=== PATIENT | female | born 1950 | race Two or more races ===

== ENCOUNTER 2024-03-26 15:50 | Inpatient (IN) | payer MEDICARE, MEDICAID ==
[~2024-03-26] VITALS: Ht 160 cm; Wt 51.8 kg
[2024-03-26 17:05] LABS: BASOPHILS % (AUTO) 0.4 % (0.0-2.0); HEMATOCRIT 35.5 % (36-46); HEMOGLOBIN 11.7 g/dL (12.0-16.0); LYMPHOCYTES # (AUTO) 1.3 K/uL (1.0-4.8); LYMPHOCYTES % (AUTO) 14.5 % (22.0-44.0); MEAN CORPUSCULAR HEMOGLOBIN 31.1 pg (26.0-34.0); MEAN CORPUSCULAR VOLUME 94 fL (80-100); MONOCYTES # (AUTO) 0.6 K/uL (0.1-1.0); MONOCYTES % (AUTO) 6.3 % (2.0-9.0); NEUTROPHILS # (AUTO) 7.1 K/uL (1.8-7.7); NEUTROPHILS % (AUTO) 77.8 % (40.0-70.0); PLATELET COUNT (AUTO) 158 K/uL (150-450); RED BLOOD CELL COUNT(AUTO) 3.77 MIL/uL (4.00-5.20); RED CELL DISTRIBUTION WIDTH 16.3 % (11.5-14.5); WHITE BLOOD COUNT (AUTO) 9.1 K/uL (4.5-11.0)
[2024-03-26 17:17] LABS: ANION GAP 7 mmol/L (8-16); CALCIUM, TOTAL 9.6 mg/dL (8.8-10.5); CARBON DIOXIDE 28 mmol/L (22-29); CHLORIDE 110 mmol/L (98-107); CREATININE 1.31 mg/dL (0.60-1.30); GLOMERULAR FILTR. RATE CALC 40 mL/min (>60); GLUCOSE,RANDOM 92 mg/dL (70-110); SODIUM SERUM 145 mmol/L (136-145); UREA NITROGEN, BLOOD 19 mg/dL (7-18)
[2024-03-26 18:03] LABS: ALCOHOL, BLOOD (SERUM) < 3 mg/dL (0-10)
[2024-03-26 19:21] LABS: COVID AG,FIA SOURCE NASAL SWAB
[2024-03-26 19:40] LABS: SARS-COV2 (COVID) ANTIGEN,FIA Negative (Negative)
[2024-03-26] MEDS ORDERED: AMMO140C4 TP (20:24)
[2024-03-26] MEDS ORDERED: CALC-916 PO (20:25)
[2024-03-26] MEDS ORDERED: ESCI5SOL2 PO (20:26)
[2024-03-26] MEDS ORDERED: FAMO10TA39 PO (20:27)
[2024-03-26] MEDS ORDERED: MEMA10TA24 PO (20:28)
[2024-03-26] MEDS ORDERED: LOSA-382 PO (20:28)
[2024-03-26] MEDS ORDERED: RISP1SOL11 PO (20:30)
[2024-03-26] MEDS ORDERED: TRAZ-186 PO (20:30)
[2024-03-26] MEDS ORDERED: LORA2I PO (20:33)
[2024-03-26] MEDS ORDERED: MEMA28CA16 PO (20:42)
[2024-03-26] MEDS ORDERED: RISP-31 PO (20:42)
[2024-03-26] MEDS ORDERED: LORA0.5T20 PO (20:42)
[2024-03-26] MEDS ORDERED: FAMO20 PO (20:42)
[2024-03-26] MEDS ORDERED: ESCI20TA87 PO (20:42)
[2024-03-27] MEDS ORDERED: ZOLPIDEM TARTRATE 10 MG TABLET PO PRN (12:15)
[2024-03-27] MEDS: LORazepam 1 MG TABLET PO PRN (12:29)
[2024-03-27] MEDS: HALOPERIDOL 5 MG TABLET PO PRN (12:29)
[2024-03-27 13:59] LABS: APPEARANCE,URINE TURBID (CLEAR); BILIRUBIN,URINE NEGATIVE (NEGATIVE); COLOR,URINE YELLOW (YELLOW); GLUCOSE, URINE (UA) NEGATIVE (NEGATIVE); KETONES,URINE NEGATIVE (NEGATIVE); LEUKOCYTE ESTERASE ,URINE LARGE (NEGATIVE); NITRATE,URINE POSITIVE (NEGATIVE); OCCULT BLOOD,URINE NEGATIVE (NEGATIVE); PH,URINE 5.5 (5.0-8.0); PH,URINE DRUG SCREEN 5.5 (5.0-8.0); PROTEIN,URINE 30-70 mg/dL (NEGATIVE); SPECIFIC GRAVITIY, URINE 1.022 (1.003-1.030); UROBILINOGEN,URINE <=1.0 mg/dL (<=1.0)
[2024-03-27 14:15] LABS: ALCOHOL, URINE DRUG SCREEN NEGATIVE (NEGATIVE); AMPHET/METH SCREEN,URINE NEGATIVE (NEGATIVE); BARBITURATE SCREEN, URINE NEGATIVE (NEGATIVE); BENZODIAZEPINES SCREEN,URINE NEGATIVE (NEGATIVE); CANNABINOID SCREEN,URINE NEGATIVE (NEGATIVE); COCAINE SCREEN,URINE NEGATIVE (NEGATIVE); METHADONE SCREEN, URINE NEGATIVE (NEGATIVE); OPIATE SCREEN,URINE NEGATIVE (NEGATIVE); PHENCYCLIDINE SCREEN,URINE NEGATIVE (NEGATIVE)
[2024-03-27 14:17] LABS: SQUAMOUS EPITHELIAL CELL,UR Many /LPF (None Seen)
[2024-03-27 14:18] LABS: BACTERIA,URINE Many /HPF (None Seen); RBC,URINE 0-2 /HPF (0-2); WBC,URINE 26-50 /HPF (0-5)
[2024-03-27 22:30] VITALS: BP 130/74; PULSE 72; RESP 18; TEMP 97.9; O2SAT 97
[2024-03-28] MEDS ORDERED: ONDANSETRON 4 MG TABLET PO PRN (07:00)
[2024-03-28] MEDS ORDERED: ACETAMINOPHEN 325 MG TABLET PO PRN (07:00)
[2024-03-28] MEDS ORDERED: CloNIDine HCL 0.1 MG TABLET PO PRN (07:00)
[2024-03-28] MEDS ORDERED: GuaiFENesin/D-METHORPHAN [SUGAR-FREE] 200-20MG/10 ML SYRUP UDCUP PO PRN (07:00)
[2024-03-28] MEDS ORDERED: DOCUSATE SODIUM 100 MG CAPSULE PO PRN (07:00)
[2024-03-28] MEDS ORDERED: LOPERAMIDE HCL 2 MG CAPSULE PO PRN (07:00)
[2024-03-28] MEDS ORDERED: NICOTINE 14 MG/24 HOUR PATCH TD PRN (07:00)
[2024-03-28] MEDS ORDERED: MAG HYDROX/ALUMINUM HYD/SIMETH ES 30 ML SUSPENSION UDCUP PO PRN (07:00)
[2024-03-28] MEDS ORDERED: MAGNESIUM HYDROXIDE SUSPENSION 30 ML UDCUP PO PRN (07:00)
[2024-03-28] MEDS ORDERED: PETROLATUM,WHITE 28 GM JELLY TP PRN (07:00)
[2024-03-28] MEDS ORDERED: ALBUTEROL SULFATE HFA 90 MCG/PUFF 8 GM INHALER IH PRN (07:00)
[2024-03-28] MEDS: FLUTICASONE PROPIONATE 50 MCG/SPRAY 16 GM NASAL SPRAY NASAL SCH (09:00)
[2024-03-28] MEDS ORDERED: CYANOCOBALAMIN 500 MCG TABLET PO SCH (09:00)
[2024-03-28 10:51] VITALS: BP 142/68; PULSE 68; RESP 20; TEMP 98.9; O2SAT 98
[2024-03-28] MEDS: CHOLECALCIFEROL (VIT D3) 1,000 UNITS [25 MCG] TABLET PO SCH (10:56)
[2024-03-28] MEDS: LOSARTAN POTASSIUM 50 MG TABLET PO SCH (10:56)
[2024-03-28] MEDS: CALCIUM CARBONATE 648 MG TABLET PO SCH (10:56)
[2024-03-28] MEDS: LACTOBAC ACID/BULG/BIFID/THERM TABLET PO SCH (10:56)
[2024-03-28] MEDS: CYANOCOBALAMIN 500 MCG TABLET PO SCH (10:57)
[2024-03-28] MEDS: MEMANTINE HCL 10 MG TABLET PO SCH (10:57)
[2024-03-28] MEDS: FAMOTIDINE 20 MG TABLET PO SCH (10:57)
[2024-03-28] MEDS: AMMONIUM LACTATE 12% 225 GM LOTION TP SCH (10:58)
[2024-03-28] MEDS ORDERED: MEMANTINE HCL 10 MG TABLET PO SCH (11:30)
[2024-03-28] MEDS: ESCITALOPRAM OXALATE 20 MG TABLET PO SCH (12:54)
[2024-03-28 12:56] VITALS: BP 138/72; PULSE 77; RESP 18; O2SAT 99
[2024-03-28] MEDS: RisperiDONE 1 MG TABLET PO SCH (17:13)
[2024-03-28] MEDS: CEPHALEXIN MONOHYDRATE 500 MG CAPSULE PO SCH (17:58)
[2024-03-28 20:36] VITALS: BP 136/77; PULSE 74; RESP 18; TEMP 97.1; O2SAT 98
[2024-03-29] MEDS: MEMANTINE HCL 10 MG TABLET PO SCH (09:34)
[2024-03-29 10:07] VITALS: BP 117/55; PULSE 74; RESP 17; TEMP 98.1; O2SAT 99
[2024-03-29 21:28] VITALS: RESP 18
[2024-03-30 09:28] VITALS: BP 130/79; PULSE 73; RESP 17; TEMP 97.4; O2SAT 96
[2024-03-30 23:11] VITALS: RESP 18
[2024-03-31 09:59] VITALS: BP 124/78; PULSE 73; RESP 17; TEMP 96.9; O2SAT 98
[2024-03-31] MEDS: IBUPROFEN 400 MG TABLET PO PRN (10:02)
[2024-03-31 22:51] VITALS: RESP 18
[2024-04-01 08:30] VITALS: BP 129/75; PULSE 76; RESP 18; TEMP 98; O2SAT 95
[2024-04-01 22:36] VITALS: BP 120/65; PULSE 80; RESP 18; TEMP 97.5; O2SAT 96
[2024-04-02 10:22] VITALS: BP 114/69; PULSE 80; RESP 18; TEMP 97.7; O2SAT 98
[2024-04-02 21:41] VITALS: BP 96/60; PULSE 68; RESP 16; TEMP 97.8; O2SAT 97
[2024-04-03 08:33] VITALS: BP 109/75; PULSE 77; RESP 17; TEMP 97.8; O2SAT 98
[2024-04-03] MEDS ORDERED: CHOL25TA4 PO (14:28)
[2024-04-03] MEDS ORDERED: CYAN500T56 PO (14:28)
[2024-04-03] MEDS ORDERED: ACID1TAB13 PO (14:29)
[2024-04-03] MEDS ORDERED: FLUT16SP NASAL (14:29)
== END 2024-04-03 18:04 | DRG 885 ==
LOC: EMS 15:50 → 3EX 03-27 23:07 → 3EI 03-28 17:45
PROVIDERS: ADMIT Psychiatry & Neurology Child & Adolescent Psychiatry; ATTEND Psychiatry & Neurology Child & Adolescent Psychiatry
PROC: GZHZZZZ Group Psychotherapy (ICD-10-PCS; principal; 2024-03-28)
PROC: GZ52ZZZ Individual Psychotherapy, Cognitive (ICD-10-PCS; 2024-03-28)
PROC: GZ56ZZZ Individual Psychotherapy, Supportive (ICD-10-PCS; 2024-03-28)
DX: F25.0 Schizoaffective disorder, bipolar type (principal); F03.911 Unspecified dementia, unspecified severity, with agitation; F03.92 Unspecified dementia, unspecified severity, with psychotic disturbance; Z20.822 Contact with and (suspected) exposure to COVID-19; I10 Essential (primary) hypertension; E55.9 Vitamin D deficiency, unspecified; Z88.5 Allergy status to narcotic agent
CPT/HCPCS: 80048; 80307; 81001; 85025; 87077; 87081; 87086; 87186; 99285; G0378; G0480

== ENCOUNTER 2024-05-15 16:43 | Inpatient (IN) | payer MEDICARE, MEDICAID ==
[~2024-05-15] VITALS: Ht 160 cm; Wt 56.8 kg
[~2024-05-15 16:43] MED LIST: ACID1TAB13 PO; AMMO140C4 TP; CALC-916 PO; CHOL25TA4 PO; CYAN500T56 PO; ESCI20TA87 PO; FAMO20 PO; FLUT16SP NASAL; LOSA-382 PO; MEMA10TA24 PO; RISP-31 PO
[2024-05-15 18:15] LABS: BASOPHILS % (AUTO) 0.4 % (0.0-2.0); EOSINOPHILS % (AUTO) 0.6 % (1.0-6.0); HEMATOCRIT 47.5 % (36-46); HEMOGLOBIN 15.6 g/dL (12.0-16.0); LYMPHOCYTES # (AUTO) 1.7 K/uL (1.0-4.8); LYMPHOCYTES % (AUTO) 9.9 % (22.0-44.0); MEAN CORPUSCULAR HEMOGLOBIN 31.8 pg (26.0-34.0); MEAN CORPUSCULAR HGB CONC 32.8 G/dL (31.0-37.0); MEAN CORPUSCULAR VOLUME 97 fL (80-100); MONOCYTES # (AUTO) 0.8 K/uL (0.1-1.0); MONOCYTES % (AUTO) 4.7 % (2.0-9.0); NEUTROPHILS # (AUTO) 14.8 K/uL (1.8-7.7); NEUTROPHILS % (AUTO) 84.4 % (40.0-70.0); PLATELET COUNT (AUTO) 148 K/uL (150-450); RED BLOOD CELL COUNT(AUTO) 4.89 MIL/uL (4.00-5.20); RED CELL DISTRIBUTION WIDTH 14.8 % (11.5-14.5); WHITE BLOOD COUNT (AUTO) 17.5 K/uL (4.5-11.0)
[2024-05-15 18:17] LABS: ANION GAP 10 mmol/L (8-16); CALCIUM, TOTAL 11.2 mg/dL (8.8-10.5); CARBON DIOXIDE 28 mmol/L (22-29); CHLORIDE 113 mmol/L (98-107); CREATININE 1.11 mg/dL (0.60-1.30); GLOMERULAR FILTR. RATE CALC 48 mL/min (>60); GLUCOSE,RANDOM 119 mg/dL (70-110); POTASSIUM 3.7 mmol/L (3.5-5.1); SODIUM SERUM 151 mmol/L (136-145); UREA NITROGEN, BLOOD 37 mg/dL (7-18)
[2024-05-15 18:25] LABS: ALCOHOL, BLOOD (SERUM) < 3 mg/dL (0-10)
[2024-05-15 20:23] LABS: COVID AG,FIA SOURCE NASAL SWAB
[2024-05-15 20:27] LABS: APPEARANCE,URINE CLEAR (CLEAR); BILIRUBIN,URINE NEGATIVE (NEGATIVE); COLOR,URINE YELLOW (YELLOW); GLUCOSE, URINE (UA) NEGATIVE (NEGATIVE); KETONES,URINE NEGATIVE (NEGATIVE); LEUKOCYTE ESTERASE ,URINE NEGATIVE (NEGATIVE); NITRATE,URINE NEGATIVE (NEGATIVE); OCCULT BLOOD,URINE NEGATIVE (NEGATIVE); PH,URINE 5.5 (5.0-8.0); PH,URINE DRUG SCREEN 5.5 (5.0-8.0); PROTEIN,URINE TRACE mg/dL (NEGATIVE)
[2024-05-15 20:33] LABS: AMPHET/METH SCREEN,URINE NEGATIVE (NEGATIVE); BARBITURATE SCREEN, URINE NEGATIVE (NEGATIVE); BENZODIAZEPINES SCREEN,URINE NEGATIVE (NEGATIVE); CANNABINOID SCREEN,URINE NEGATIVE (NEGATIVE); COCAINE SCREEN,URINE NEGATIVE (NEGATIVE); METHADONE SCREEN, URINE NEGATIVE (NEGATIVE); OPIATE SCREEN,URINE NEGATIVE (NEGATIVE); PHENCYCLIDINE SCREEN,URINE NEGATIVE (NEGATIVE)
[2024-05-15 20:37] LABS: ALCOHOL, URINE DRUG SCREEN NEGATIVE (NEGATIVE)
[2024-05-15 20:42] LABS: SARS-COV2 (COVID) ANTIGEN,FIA Negative (Negative)
[2024-05-15] MEDS ORDERED: 0.9% SODIUM CHLORIDE 10 ML SYRINGE IVP PRN (20:45)
[2024-05-15] MEDS ORDERED: ONDANSETRON HCL 4 MG/2 ML VIAL IVP PRN (20:45)
[2024-05-15] MEDS: DOCUSATE SODIUM 100 MG CAPSULE PO SCH (20:49)
[2024-05-15] MEDS ORDERED: SODIUM CHLORIDE 0.9% 100 ML ONE (21:04)
[2024-05-15] MEDS ORDERED: IOHEXOL 350 MG/ML 100 ML VIAL ONE (21:04)
[2024-05-15] MEDS ORDERED: 0.9% SODIUM CHLORIDE 10 ML SYRINGE IVP ONE (21:04)
[2024-05-15] MEDS: SODIUM CHLORIDE 0.9% 1,700 ML IV ONE (21:06)
[2024-05-15 21:41] LABS: ANION GAP 9 mmol/L (8-16); CALCIUM, TOTAL 10.6 mg/dL (8.8-10.5); CARBON DIOXIDE 26 mmol/L (22-29); CHLORIDE 117 mmol/L (98-107); CREATININE 0.83 mg/dL (0.60-1.30); GLOMERULAR FILTR. RATE CALC > 60 mL/min (>60); GLUCOSE,RANDOM 130 mg/dL (70-110); POTASSIUM 3.4 mmol/L (3.5-5.1); SODIUM SERUM 152 mmol/L (136-145); UREA NITROGEN, BLOOD 37 mg/dL (7-18)
[2024-05-15 21:45] LABS: ALANINE AMINOTRANSFERASE 29 U/L (12-78); ALBUMIN 2.6 g/dL (3.4-5.0); ALKALINE PHOSPHATASE 87 U/L (46-116); ASPARTATE AMINOTRANSFERASE 16 U/L (15-37); BILIRUBIN,TOTAL 0.9 mg/dL (0.1-1.0); LACTATE DEHYDROGENASE 210 U/L (81-234); TOTAL PROTEIN, SERUM 6.2 g/dL (6.4-8.2)
[2024-05-15 21:48] LABS: LACTIC ACID 1.3 mmol/L (0.4-2.0)
[2024-05-15 23:08] VITALS: BP 106/77; PULSE 72; RESP 18; TEMP 94.9; O2SAT 99
[2024-05-15] MEDS: HEPARIN SODIUM,PORCINE 5,000 UNITS/ML VIAL SQ SCH (23:35)
[2024-05-15] MEDS: DEXTROSE 5%-WATER 1,000 ML IV SCH (23:36)
[2024-05-15] MEDS: POTASSIUM CHLORIDE 20 MEQ ER TABLET PO ONE (23:37)
[2024-05-16] MEDS: CefTRIAXone 1 GM/DEXTROSE 50 ML IV SCH (00:31)
[2024-05-16] MEDS ORDERED: SODIUM CHLORIDE 0.9% 500 ML IV ONE (00:34)
[2024-05-16 04:53] LABS: BASOPHILS % (AUTO) 0.2 % (0.0-2.0); EOSINOPHILS % (AUTO) 0.4 % (1.0-6.0); HEMATOCRIT 38.1 % (36-46); HEMOGLOBIN 12.6 g/dL (12.0-16.0); LYMPHOCYTES # (AUTO) 1.1 K/uL (1.0-4.8); LYMPHOCYTES % (AUTO) 7.7 % (22.0-44.0); MEAN CORPUSCULAR HEMOGLOBIN 31.7 pg (26.0-34.0); MEAN CORPUSCULAR HGB CONC 33.1 G/dL (31.0-37.0); MEAN CORPUSCULAR VOLUME 96 fL (80-100); MONOCYTES # (AUTO) 0.7 K/uL (0.1-1.0); MONOCYTES % (AUTO) 5.2 % (2.0-9.0); NEUTROPHILS # (AUTO) 12.4 K/uL (1.8-7.7); PLATELET COUNT (AUTO) 122 K/uL (150-450); RED BLOOD CELL COUNT(AUTO) 3.98 MIL/uL (4.00-5.20); RED CELL DISTRIBUTION WIDTH 14.6 % (11.5-14.5); WHITE BLOOD COUNT (AUTO) 14.3 K/uL (4.5-11.0)
[2024-05-16 04:58] LABS: NEUTROPHILS % (AUTO) 86.5 % (40.0-70.0)
[2024-05-16 07:25] VITALS: BP 118/62; PULSE 86; RESP 20; TEMP 96.5; O2SAT 98
[2024-05-16 15:07] VITALS: BP 110/79; PULSE 78; RESP 20; TEMP 97; O2SAT 98
[2024-05-16 21:23] VITALS: BP 107/73; PULSE 71; RESP 20; TEMP 97.7; O2SAT 96
[2024-05-17 04:09] VITALS: BP 107/53; PULSE 69; RESP 19; TEMP 99; O2SAT 99
[2024-05-17 07:53] VITALS: BP 117/77; PULSE 72; RESP 18; TEMP 99.1; O2SAT 100
[2024-05-17 08:11] LABS: BASOPHILS % (AUTO) 0.4 % (0.0-2.0); EOSINOPHILS % (AUTO) 2.6 % (1.0-6.0); HEMATOCRIT 36.2 % (36-46); LYMPHOCYTES # (AUTO) 1.7 K/uL (1.0-4.8); LYMPHOCYTES % (AUTO) 16.9 % (22.0-44.0); MEAN CORPUSCULAR HGB CONC 33.1 G/dL (31.0-37.0); MEAN CORPUSCULAR VOLUME 97 fL (80-100); MONOCYTES # (AUTO) 0.5 K/uL (0.1-1.0); MONOCYTES % (AUTO) 5.5 % (2.0-9.0); NEUTROPHILS # (AUTO) 7.4 K/uL (1.8-7.7); NEUTROPHILS % (AUTO) 74.6 % (40.0-70.0); PLATELET COUNT (AUTO) 108 K/uL (150-450); RED BLOOD CELL COUNT(AUTO) 3.74 MIL/uL (4.00-5.20); RED CELL DISTRIBUTION WIDTH 14.5 % (11.5-14.5); WHITE BLOOD COUNT (AUTO) 9.9 K/uL (4.5-11.0)
[2024-05-17 08:29] LABS: ALANINE AMINOTRANSFERASE 25 U/L (12-78); ALBUMIN 2.2 g/dL (3.4-5.0); ALKALINE PHOSPHATASE 70 U/L (46-116); ANION GAP 5 mmol/L (8-16); ASPARTATE AMINOTRANSFERASE 16 U/L (15-37); BILIRUBIN,TOTAL 0.5 mg/dL (0.1-1.0); CALCIUM, TOTAL 9.8 mg/dL (8.8-10.5); CARBON DIOXIDE 26 mmol/L (22-29); CHLORIDE 114 mmol/L (98-107); CREATININE 0.65 mg/dL (0.60-1.30); GLOMERULAR FILTR. RATE CALC > 60 mL/min (>60); GLUCOSE,RANDOM 93 mg/dL (70-110); POTASSIUM 3.6 mmol/L (3.5-5.1); SODIUM SERUM 145 mmol/L (136-145); TOTAL PROTEIN, SERUM 5.3 g/dL (6.4-8.2); UREA NITROGEN, BLOOD 27 mg/dL (7-18)
[2024-05-17 16:30] VITALS: BP 110/68; PULSE 82; RESP 20; TEMP 98.6; O2SAT 100
[2024-05-17 20:39] VITALS: BP 113/64; PULSE 84; RESP 18; TEMP 98.2; O2SAT 98
[2024-05-18 06:00] VITALS: BP 128/75; PULSE 82; RESP 18; TEMP 97.5; O2SAT 99
[2024-05-18] MEDS: ACETAMINOPHEN 325 MG TABLET PO PRN (08:40)
[2024-05-18 08:47] VITALS: BP 117/88; PULSE 79; RESP 20; TEMP 98.5; O2SAT 100
[2024-05-18 15:58] VITALS: BP 121/82; PULSE 76; RESP 20; TEMP 97.3; O2SAT 99
[2024-05-18 19:59] VITALS: BP 131/71; PULSE 72; RESP 18; TEMP 99; O2SAT 100
[2024-05-19 04:47] VITALS: BP 126/81; PULSE 70; RESP 18; TEMP 98.5; O2SAT 100
[2024-05-19 08:03] VITALS: BP 131/73; PULSE 72; RESP 18; TEMP 97.8; O2SAT 99
[2024-05-19 16:31] VITALS: BP 131/71; PULSE 88; RESP 18; TEMP 97.9; O2SAT 98
[2024-05-19 19:51] VITALS: BP 133/66; PULSE 83; RESP 18; TEMP 97.9; O2SAT 97
[2024-05-20 04:37] VITALS: BP 116/76; PULSE 67; RESP 18; TEMP 97.7; O2SAT 100
[2024-05-20 07:16] VITALS: BP 124/79; PULSE 72; RESP 20; TEMP 98.2; O2SAT 98
[2024-05-20 14:46] LABS: BASOPHILS % (AUTO) 0.3 % (0.0-2.0); EOSINOPHILS % (AUTO) 6.3 % (1.0-6.0); HEMATOCRIT 41.3 % (36-46); HEMOGLOBIN 13.8 g/dL (12.0-16.0); LYMPHOCYTES # (AUTO) 1.9 K/uL (1.0-4.8); LYMPHOCYTES % (AUTO) 18.8 % (22.0-44.0); MEAN CORPUSCULAR HEMOGLOBIN 31.7 pg (26.0-34.0); MEAN CORPUSCULAR HGB CONC 33.4 G/dL (31.0-37.0); MEAN CORPUSCULAR VOLUME 95 fL (80-100); MONOCYTES # (AUTO) 0.6 K/uL (0.1-1.0); MONOCYTES % (AUTO) 5.9 % (2.0-9.0); NEUTROPHILS # (AUTO) 6.9 K/uL (1.8-7.7); NEUTROPHILS % (AUTO) 68.7 % (40.0-70.0); PLATELET COUNT (AUTO) 149 K/uL (150-450); RED BLOOD CELL COUNT(AUTO) 4.35 MIL/uL (4.00-5.20); RED CELL DISTRIBUTION WIDTH 14.2 % (11.5-14.5); WHITE BLOOD COUNT (AUTO) 10.1 K/uL (4.5-11.0)
[2024-05-20 20:27] VITALS: BP 118/95; PULSE 65; RESP 19; TEMP 97.9; O2SAT 95
[2024-05-21 04:54] VITALS: BP 108/77; PULSE 69; RESP 19; TEMP 98.1; O2SAT 100
[2024-05-21 08:00] VITALS: BP 104/60; PULSE 77; RESP 19; TEMP 97.9; O2SAT 96
[2024-05-21 16:11] VITALS: BP 121/75; PULSE 92; RESP 16; TEMP 97.7; O2SAT 97
[2024-05-21 19:45] VITALS: BP 102/70; PULSE 100; RESP 18; TEMP 98.8; O2SAT 99
[2024-05-22 04:25] VITALS: BP 119/81; PULSE 87; RESP 18; TEMP 98.1; O2SAT 99
[2024-05-22 08:00] VITALS: BP 120/83; PULSE 82; RESP 20; TEMP 97.8; O2SAT 98
[2024-05-22 15:00] VITALS: BP 107/76; PULSE 89; RESP 19; TEMP 98; O2SAT 99
[2024-05-22 20:10] VITALS: BP 119/77; PULSE 82; RESP 18; TEMP 98; O2SAT 97
[2024-05-23 04:30] VITALS: BP 128/80; PULSE 72; RESP 18; TEMP 96.8; O2SAT 100
[2024-05-23 07:57] VITALS: BP 141/82; PULSE 81; RESP 20; TEMP 98.2; O2SAT 97
[2024-05-23 08:38] LABS: ANION GAP 10 mmol/L (8-16); CALCIUM, TOTAL 9.8 mg/dL (8.8-10.5); CARBON DIOXIDE 17 mmol/L (22-29); CHLORIDE 105 mmol/L (98-107); CREATININE 0.51 mg/dL (0.60-1.30); GLOMERULAR FILTR. RATE CALC > 60 mL/min (>60); GLUCOSE,RANDOM 85 mg/dL (70-110); POTASSIUM 4.3 mmol/L (3.5-5.1); SODIUM SERUM 132 mmol/L (136-145); UREA NITROGEN, BLOOD 22 mg/dL (7-18)
[2024-05-23 12:07] LABS: BASOPHILS % (AUTO) 0.5 % (0.0-2.0); HEMATOCRIT 43.4 % (36-46); HEMOGLOBIN 14.3 g/dL (12.0-16.0); LYMPHOCYTES % (AUTO) 20.2 % (22.0-44.0); MEAN CORPUSCULAR HGB CONC 33.1 G/dL (31.0-37.0); MEAN CORPUSCULAR VOLUME 97 fL (80-100); MONOCYTES # (AUTO) 0.8 K/uL (0.1-1.0); MONOCYTES % (AUTO) 7.6 % (2.0-9.0); NEUTROPHILS # (AUTO) 6.5 K/uL (1.8-7.7); NEUTROPHILS % (AUTO) 64.7 % (40.0-70.0); PLATELET COUNT (AUTO) 190 K/uL (150-450); RED BLOOD CELL COUNT(AUTO) 4.48 MIL/uL (4.00-5.20); RED CELL DISTRIBUTION WIDTH 14.6 % (11.5-14.5)
[2024-05-23 20:45] VITALS: BP 128/86; PULSE 66; RESP 18; TEMP 98.4; O2SAT 98
[2024-05-24 05:47] VITALS: BP 144/86; PULSE 84; RESP 18; TEMP 97.9; O2SAT 98
[2024-05-24 07:52] VITALS: BP 132/85; PULSE 104; RESP 20; TEMP 98.1; O2SAT 99
[2024-05-24 09:05] LABS: ANION GAP 6 mmol/L (8-16); CALCIUM, TOTAL 9.8 mg/dL (8.8-10.5); CARBON DIOXIDE 27 mmol/L (22-29); CHLORIDE 104 mmol/L (98-107); CREATININE 0.45 mg/dL (0.60-1.30); GLOMERULAR FILTR. RATE CALC > 60 mL/min (>60); GLUCOSE,RANDOM 94 mg/dL (70-110); POTASSIUM 4.3 mmol/L (3.5-5.1); SODIUM SERUM 137 mmol/L (136-145); UREA NITROGEN, BLOOD 12 mg/dL (7-18)
[2024-05-24] MEDS ORDERED: DOCU-385 PO (10:11)
[2024-05-24] MEDS ORDERED: HEPA500018 SQ (10:12)
[2024-05-24] MEDS ORDERED: ACET-2247 PO (10:12)
== END 2024-05-24 11:45 | DRG 640 ==
LOC: EMS 16:43 → EDH 20:32 → 6S 22:59 → 4E 05-19 02:24 → UNDODISIN 05-19 15:35
PROVIDERS: ADMIT Internal Medicine; ATTEND Internal Medicine
DX: E87.0 Hyperosmolality and hypernatremia (principal); G93.41 Metabolic encephalopathy; R53.2 Functional quadriplegia; R65.11 Systemic inflammatory response syndrome (SIRS) of non-infectious origin with acute organ dysfunction; N17.9 Acute kidney failure, unspecified; E87.1 Hypo-osmolality and hyponatremia; Z20.822 Contact with and (suspected) exposure to COVID-19; E86.0 Dehydration; F03.90 Unspecified dementia, unspecified severity, without behavioral disturbance, psychotic disturbance, mood disturbance, and anxiety; L89.151 Pressure ulcer of sacral region, stage 1; I10 Essential (primary) hypertension; R62.7 Adult failure to thrive; Z68.22 Body mass index [BMI] 22.0-22.9, adult; Z88.5 Allergy status to narcotic agent; Z79.899 Other long term (current) drug therapy
CPT/HCPCS: 70450; 71045; 71260; 72193; 74160; 80048; 80053; 80307; 81003; 83605; 83615; 83735; 84145; 85025; 85730; 87040; 87081; 92526; 92610; 97163; 97167; 97530; 97535; 99285; G0378; G0480; J0696; J1644; J7040; J7050; J7060; 36415-L1; 36415-TC